=== PATIENT | female | born 1990 | race Caucasian/White ===

== ENCOUNTER 2016-11-02 01:52 | Emergency (ER) | payer OTHER ==
[~2016-11-02] VITALS: Ht 166.4 cm; Wt 67.3 kg
[2016-11-02 02:01] VITALS: TEMP 37; Ht 166.4 cm; Wt 67.3 kg
--- NOTE | 2016-11-02 02:13 | EMERGENCY ROOM VISIT NOTE ---
ED Visit Note First contact with patient: 01:57 CHIEF COMPLAINT: Finger laceration HISTORY OF PRESENT ILLNESS: This 26-year-old female patient presents to the emergency department ambulatory after cutting the left second finger with a knife just prior to arrival. The bleeding has stopped. The patient states that there was a very small skin flap but it got pulled off when she pulled a paper towel off of her finger. Denies weakness or numbness of the finger. The patient has full range of motion of the fingers. The patient denies any pain. The patient denies any other injuries. The patient's tetanus shot is up to date. REVIEW OF SYSTEMS: A 6 system review of systems was completed with positives and pertinent negatives listed in the HPI. ALLERGIES: None MEDICATIONS: see nursing notes PMH: None SOCIAL HISTORY: The patient is staying at a lodge locally PHYSICAL EXAM: Vital Signs: Reviewed Nurse's notes, vital signs stable. GENERAL : This is a 26-year-old female, in no acute distress, well developed, well nourished. SKIN: There is a very superficial skin avulsion , less than 1 cm long laceration on the palmar aspect of the left second finger. There is no foreign material in the wound and it looks clean. There is no bleeding. No deep structures such as tendons, bones, or nerves are seen in the base of the wound. Extension and flexion of the finger is full and strong. Full range of motion of the wrist and other fingers. Capillary refill less than 2 seconds. Normal sensation to light and sharp touch. EMERGENCY DEPARTMENT COURSE: I examined the patient. The wound was cleaned and dressed with Gelfoam and mickie. The patient was discharged home in good condition. Current/Historical Medications No Active Prescriptions or Reported Meds Allergies Coded Allergies: Iodine (Verified Allergy, Unknown, HIVES, 11/02/16) Shellfish (Verified Allergy, Unknown, ANAPHYLAXIS, 11/02/16) Vital Signs Date Time Temp Pulse Resp B/P (MAP) Pulse Ox O2 Delivery O2 Flow Rate FiO2 11/02/16 03:13 90 20 147/57 99 11/02/16 02:01 37.0 82 18 105/59 97 Room Air Departure Information Impression Primary Impression: Skin avulsion Dispostion Home / Self-Care Condition GOOD Prescriptions No Active Prescriptions or Reported Meds Patient Instructions ED Avulsion Dermal, My [facility] Additional Instructions Keep dressing in place for 48 hrs, then remove. Soak foam in water until it falls off easily, then clean wound daily, cover with an antibiotic ointment and keep covered until it heals. Return for any signs of infection (increasing redness, swelling, drainage, fever). Ice and elevate for swelling and pain. Keep covered when in sun until fully healed then SPF 50 or higher for one year. Vitamin E oil if desired two weeks after fully healed for reduction of scar.
[2016-11-02] MEDS ORDERED: GELATIN SPONGE 12-7MM EXT ONE (02:15)
[2016-11-02 03:13] VITALS: BP 147/57; PULSE 90; O2SAT 99
== END 2016-11-02 03:08 | disposition home or self-care (01) ==
LOC: C.EDB 01:57
DX: S61.211A Laceration without foreign body of left index finger without damage to nail, initial encounter (principal); W26.0XXA Contact with knife, initial encounter